=== PATIENT | male | born 1935 | race Caucasian/White ===

== ENCOUNTER 2021-09-27 09:36 | Outpatient (CLI) | payer MEDICARE | END 2021-09-27 09:37 | disposition home or self-care (01) | LOC: CSHRAD 09:36 | PROVIDERS: ATTEND Family Medicine Sports Medicine | DX: M54.2 Cervicalgia (principal); M47.812 Spondylosis without myelopathy or radiculopathy, cervical region | CPT/HCPCS: 72040 ==

== ENCOUNTER 2022-07-26 09:42 | Emergency (ER) | payer MEDICARE ==
[2022-07-26 10:29] LABS: #Basophils 0.1 10x3/uL (0.0-0.2); #Eosinphils 0.2 10x3/uL (0.0-0.5); #Monocytes 0.7 10x3/uL (0.0-1.1); #Neutrophils 2.9 10x3/uL (1.5-8.4); %Basophils 1.5 % (0.0-2.0); %Eosinophils 3.6 % (0.0-6.0); %Lymphocytes 31.6 % (18.0-47.0); %Monocytes 11.4 % (0.0-10.0); %Neutrophils 49.2 % (40.0-75.0); Hemoglobin 15.1 g/dL (13.5-17.5); Mean Corpuscular HGB CONC 33.1 g/dL (32.0-36.0); Mean Corpuscular Hemoglobin 31.9 pg (27.0-33.0); Mean Corpuscular Volume 96.2 fl (81.2-95.1); Mean Platelet Volume 9.8 fl (7.4-10.4); Platelet Count 271 10x3/uL (150-450); RBC Distribution Width 13.3 % (11.5-14.5); Red Blood Cell (RBC) Count 4.74 10x6/uL (4.32-5.72); White Blood Cell (WBC) Count 5.9 10x3/uL (3.5-10.5)
[2022-07-26 10:53] LABS: ALT (SGPT) Less than 6 U/L (8-55); AST (SGOT) 21 U/L (5-34); Albumin 3.6 g/dL (3.4-4.8); Alkaline Phosphatase 98 U/L (40-110); Anion Gap 14 mmol/L (10-20); BUN (Urea Nitrogen) 8 mg/dL (8.4-25.7); Bilirubin, Total 0.5 mg/dL (0.2-1.2); Calc. Creatinine Clearance 0 mL/min (70-130); Calcium 9.5 mg/dL (7.8-10.44); Carbon Dioxide 24 mmol/L (23-31); Chloride 101 mmol/L (98-107); Estimated GFR 86; Glucose 91 mg/dL (83-110); Potassium 4.1 mmol/L (3.5-5.1); Protein, Total 7.6 g/dL (5.8-8.1); Sodium 135 mmol/L (136-145)
[2022-07-26 11:44] LABS: Bilirubin Neg (Negative); Blood, Urine Negative (Negative); Clarity Clear (Clear); Glucose, Urine (Dipstick) Normal (Negative); Ketone, Urine Negative (Negative); Leukocyte 25 (Negative); Nitrite Negative (Negative); Protein, Urine (Dipstick) Negative (Neg-Trace); Urobilinogen Normal mg/dL (Less than 2)
[2022-07-26 11:57] LABS: Bacteria/HPF None Seen HPF (None Seen); RBC/HPF 0-3 HPF (0-3); Squamous Epithelial None Seen HPF (0-3); WBC/HPF None Seen HPF (0-3)
== END 2022-07-26 13:00 | disposition home or self-care (01) ==
LOC: CSHERS 09:42
DX: R44.3 Hallucinations, unspecified (principal); G20 Parkinson's disease; I10 Essential (primary) hypertension
CPT/HCPCS: 70450; 80053; 81003; 81015; 84484; 85025; 93005

== ENCOUNTER 2022-12-20 21:23 | Inpatient (IN) | payer MEDICARE ==
[2022-12-20 22:47] LABS: #Basophils 0.1 10x3/uL (0.0-0.2); #Monocytes 1.2 10x3/uL (0.0-1.1); #Neutrophils 16.5 10x3/uL (1.5-8.4); %Basophils 0.5 % (0.0-2.0); %Eosinophils 0.1 % (0.0-6.0); %Lymphocytes 5.8 % (18.0-47.0); %Monocytes 6.4 % (0.0-10.0); %Neutrophils 85.5 % (40.0-75.0); ALT (SGPT) 7 U/L (8-55); AST (SGOT) 31 U/L (5-34); Alkaline Phosphatase 81 U/L (40-110); Anion Gap 13 mmol/L (10-20); BUN (Urea Nitrogen) 13 mg/dL (8.4-25.7); Bilirubin, Total 0.8 mg/dL (0.2-1.2); Calc. Creatinine Clearance 0 mL/min (70-130); Calcium 9.5 mg/dL (7.8-10.44); Carbon Dioxide 22 mmol/L (23-31); Chloride 102 mmol/L (98-107); Estimated GFR 85; Globulin 3.3 g/dL (2.4-3.5); Glucose 120 mg/dL (83-110); Hematocrit 47.5 % (38.8-50.0); Hemoglobin 16.1 g/dL (13.5-17.5); Lipase 15 U/L (8-78); Mean Corpuscular HGB CONC 33.9 g/dL (32.0-36.0); Mean Corpuscular Hemoglobin 33.2 pg (27.0-33.0); Mean Corpuscular Volume 97.9 fl (81.2-95.1); Mean Platelet Volume 10.6 fl (7.4-10.4); Platelet Count 238 10x3/uL (150-450); Protein, Total 7.3 g/dL (5.8-8.1); RBC Distribution Width 13.5 % (11.5-14.5); Red Blood Cell (RBC) Count 4.85 10x6/uL (4.32-5.72); Sodium 133 mmol/L (136-145); White Blood Cell (WBC) Count 19.3 10x3/uL (3.5-10.5)
[2022-12-20 22:53] LABS: Troponin I Less than 0.010 ng/mL (< 0.028)
[2022-12-20] MEDS ORDERED: cefTRIAXone (ROCEPHIN) 1 GM VIAL ONE (23:54)
[2022-12-20 23:58] LABS: Bilirubin Neg (Negative); Blood, Urine 25 (Negative); Clarity Clear (Clear); Glucose, Urine (Dipstick) Normal (Negative); Ketone, Urine Negative (Negative); Leukocyte Negative (Negative); Nitrite Negative (Negative); Protein, Urine (Dipstick) 15 mg/dl (Neg-Trace); Urobilinogen Normal mg/dL (Less than 2)
[2022-12-21 00:13] LABS: RBC/HPF 0-3 HPF (0-3)
[2022-12-21 00:14] LABS: Bacteria/HPF Rare-Few HPF (None Seen); CAUTI Indications for Culture Alt mental st,lethar; Mucous/LPF 1+ LPF (<2+); Squamous Epithelial 0-3 HPF (0-3); WBC/HPF 0-3 HPF (0-3)
[2022-12-21 00:16] LABS: Urine Culture Reflex No No
[2022-12-21] MEDS ORDERED: Senokot S 8.6-50 MG TAB PO PRN (01:43)
[2022-12-21] MEDS ORDERED: Ondansetron PF 4 MG/2 ML Vial IVP PRN (01:43)
[2022-12-21] MEDS ORDERED: Guaifenesin DM 100-10/5 ML UDCUP PO PRN (01:43)
[2022-12-21] MEDS ORDERED: Acetaminophen 325 MG TAB PO PRN (01:43)
[2022-12-21] MEDS ORDERED: Calcium Carbonate 500 MG ChewTAB PO PRN (01:43)
[2022-12-21 03:04] VITALS: BMI 28.5
[2022-12-21] MEDS ORDERED: Lactated Ringer's 500 ML IV SCH (03:30)
[2022-12-21 05:13] LABS: SARS-CoV-2 NAA Rapid Test Not Detected (NotDetected)
[2022-12-21 05:21] LABS: #Basophils 0.1 10x3/uL (0.0-0.2); #Monocytes 1.4 10x3/uL (0.0-1.1); #Neutrophils 12.2 10x3/uL (1.5-8.4); %Basophils 0.8 % (0.0-2.0); %Eosinophils 0.1 % (0.0-6.0); %Lymphocytes 12.7 % (18.0-47.0); %Monocytes 8.8 % (0.0-10.0); %Neutrophils 76.3 % (40.0-75.0); Hematocrit 44.7 % (38.8-50.0); Hemoglobin 14.9 g/dL (13.5-17.5); Mean Corpuscular HGB CONC 33.3 g/dL (32.0-36.0); Mean Corpuscular Hemoglobin 33.2 pg (27.0-33.0); Mean Corpuscular Volume 99.6 fl (81.2-95.1); Platelet Count 210 10x3/uL (150-450); RBC Distribution Width 13.6 % (11.5-14.5); Red Blood Cell (RBC) Count 4.49 10x6/uL (4.32-5.72)
[2022-12-21] MEDS: Levothyroxine Sodium 125 MCG TAB PO SCH (05:25)
[2022-12-21 05:32] LABS: Anion Gap 12 mmol/L (10-20); BUN (Urea Nitrogen) 10 mg/dL (8.4-25.7); Calc. Creatinine Clearance 81 mL/min (70-130); Calcium 8.7 mg/dL (7.8-10.44); Carbon Dioxide 24 mmol/L (23-31); Chloride 104 mmol/L (98-107); Estimated GFR 87; Glucose 97 mg/dL (83-110); Potassium 3.7 mmol/L (3.5-5.1); Sodium 136 mmol/L (136-145)
[2022-12-21] MEDS: Carbidopa/Levodopa CR 50-200 mg Tablet PO SCH ×3 (08:42→22:15)
[2022-12-21] MEDS: Propranolol 10 MG TAB PO SCH ×3 (08:42→22:16)
[2022-12-21] MEDS: Folic Acid 1 MG TAB PO SCH (08:42)
[2022-12-21] MEDS: Famotidine 20 MG TAB PO SCH ×2 (08:42→22:16)
[2022-12-21] MEDS: Amlodipine 5 MG TAB PO SCH (08:43)
[2022-12-21] MEDS: cefTRIAXone\\ROCEPHIN 2 GM in Sodium Chloride 0.9% 100 ML IVPB SCH (08:45)
[2022-12-21] MEDS ORDERED: Sodium Chloride 0.9% 1,000 ML IV SCH (13:45)
[2022-12-22] MEDS ORDERED: traZODone HCl 50 MG TAB PO PRN (02:25)
[2022-12-22] MEDS ORDERED: traZODone HCl 50 MG TAB PO SCH (02:30)
[2022-12-22] MEDS: Levothyroxine Sodium 125 MCG TAB PO SCH (06:09)
[2022-12-22] MEDS ORDERED: [UNRECOGNIZED DRUG - OTHER] PO SCH (09:00)
[2022-12-22] MEDS ORDERED: LEVODOPA PO SCH (09:00)
[2022-12-22] MEDS ORDERED: CARBIDOPA PO SCH (09:00)
[2022-12-22] MEDS ORDERED: Lactated Ringer's 1,000 ML IV SCH (09:15)
[2022-12-22] MEDS: Amlodipine 5 MG TAB PO SCH (10:02)
[2022-12-22] MEDS: Propranolol HCl 20 MG TAB PO SCH ×3 (10:04→22:02)
[2022-12-22] MEDS: Folic Acid 1 MG TAB PO SCH (10:04)
[2022-12-22] MEDS: Venlafaxine HCl XR 75 MG CAP PO SCH (10:04)
[2022-12-22] MEDS: QUEtiapine 25 MG TAB PO SCH (10:05)
[2022-12-22] MEDS: Bupropion 150 MG SR TAB PO SCH (10:05)
[2022-12-22] MEDS: Famotidine 20 MG TAB PO SCH ×2 (10:05→22:02)
[2022-12-22] MEDS: Gabapentin 100 MG CAP PO SCH ×3 (10:05→22:02)
[2022-12-22] MEDS: cefTRIAXone\\ROCEPHIN 2 GM in Sodium Chloride 0.9% 100 ML IVPB SCH (10:25)
[2022-12-22] MEDS ORDERED: [UNRECOGNIZED DRUG - OTHER] PO SCH (21:00)
[2022-12-22] MEDS ORDERED: Donepezil HCl 5 MG TAB PO SCH (21:00)
[2022-12-23 04:21] LABS: Anion Gap 12 mmol/L (10-20); BUN (Urea Nitrogen) 14 mg/dL (8.4-25.7); Calc. Creatinine Clearance 83 mL/min (70-130); Calcium 8.8 mg/dL (7.8-10.44); Carbon Dioxide 22 mmol/L (23-31); Chloride 106 mmol/L (98-107); Estimated GFR 88; Glucose 87 mg/dL (83-110); Sodium 136 mmol/L (136-145)
[2022-12-23 04:23] LABS: Hematocrit 43.2 % (38.8-50.0); Hemoglobin 14.5 g/dL (13.5-17.5); MDiff Complete? YES; Mean Corpuscular HGB CONC 33.6 g/dL (32.0-36.0); Mean Corpuscular Hemoglobin 33.2 pg (27.0-33.0); Mean Corpuscular Volume 98.9 fl (81.2-95.1); Mean Platelet Volume 10.7 fl (7.4-10.4); Platelet Count 233 10x3/uL (150-450); RBC Distribution Width 13.6 % (11.5-14.5); Red Blood Cell (RBC) Count 4.37 10x6/uL (4.32-5.72); White Blood Cell (WBC) Count 8.2 10x3/uL (3.5-10.5)
[2022-12-23 04:57] LABS: Band 1 % (5-11); Eosinophils 1 % (0-10); Lymphocytes 23 % (21-51); Monocytes 21 % (0-10); Neutrophil 54 % (42-75)
[2022-12-23 05:01] LABS: Microcytosis SLIGHT = 6-15 cells (100X) (0-5/hpf); Platelet Adequacy Comment Platelets Normal; Schistocytes SLIGHT = 2-5 cells (100X) (0-1/hpf)
[2022-12-23] MEDS: Levothyroxine Sodium 125 MCG TAB PO SCH (05:28)
[2022-12-23 08:59] VITALS: TEMP 98.2
[2022-12-23] MEDS: Bupropion 150 MG SR TAB PO SCH (10:33)
[2022-12-23] MEDS: Venlafaxine HCl XR 75 MG CAP PO SCH (10:33)
[2022-12-23] MEDS: Amlodipine 5 MG TAB PO SCH (10:33)
[2022-12-23] MEDS: Famotidine 20 MG TAB PO SCH (10:34)
[2022-12-23] MEDS: Propranolol HCl 20 MG TAB PO SCH (10:35)
[2022-12-23] MEDS: Folic Acid 1 MG TAB PO SCH (10:35)
[2022-12-23] MEDS: QUEtiapine 25 MG TAB PO SCH (10:35)
[2022-12-23] MEDS: Gabapentin 100 MG CAP PO SCH (10:35)
[2022-12-23] MEDS: cefTRIAXone\\ROCEPHIN 2 GM in Sodium Chloride 0.9% 100 ML IVPB SCH (10:36)
[2022-12-23 11:29] VITALS: BP 137/81
== END 2022-12-23 12:20 | disposition home health service (06) | DRG 79 ==
LOC: CSHERS 21:23 → CSHTELE 12-21 02:42
PROVIDERS: ADMIT Student in an Organized Health Care Education/Training Program; ATTEND Internal Medicine
DX: I67.4 Hypertensive encephalopathy (principal); E86.0 Dehydration; N28.89 Other specified disorders of kidney and ureter; D72.829 Elevated white blood cell count, unspecified; I10 Essential (primary) hypertension; G20 Parkinson's disease; M19.90 Unspecified osteoarthritis, unspecified site; F32.A Depression, unspecified; F02.80 Dementia in other diseases classified elsewhere, unspecified severity, without behavioral disturbance, psychotic disturbance, mood disturbance, and anxiety; E03.9 Hypothyroidism, unspecified; Z66 Do not resuscitate; G62.9 Polyneuropathy, unspecified; Z88.0 Allergy status to penicillin; Z20.822 Contact with and (suspected) exposure to COVID-19
CPT/HCPCS: 36415; 70450; 71045; 74177; 80048; 80053; 81001; 83605; 83690; 83735; 83880; 84443; 84484; 85025; 87040; 87086; 93005; J0696; J1650; J3490; J7050; J7120